=== PATIENT | female | born 1995 | race American Indian/Alaskan Native ===

== ENCOUNTER 2017-07-20 06:42 | Outpatient (CLI) | payer MEDICARE ==
[2017-07-20] MEDS ORDERED: LACTATED RINGERS 1,000 ML IV ONE (06:43)
[2017-07-20 07:03] VITALS: BP 104/63
[2017-07-20 07:10] LABS: Bilirubin,Urine NEG (Negative); Blood,Urine MOD (Negative); Color,Urine Yellow (Yellow); Mucus,Urine FEW /HPF; Protein,Urine <15 mg/dL mg/dL (Negative); Urobilinogen,Urine < 2.0 mg/dL (<2.0)
[2017-07-20 07:42] LABS: Basophils % (Auto) 0.4 % (0.0-1.8); Eosinophils # (Auto) 0.1 K/mm3 (0.0-0.4); Eosinophils % (Auto) 1.3 % (0.0-4.3); Hematocrit 28.7 % (30.3-42.9); Hemoglobin 9.5 gm/dl (10.1-14.3); Lymphocytes # (Auto) 1.7 K/mm3 (1.2-5.4); Lymphocytes % (Auto) 23.5 % (13.4-35.0); Mean Corpuscular HGB Conc 33 % (30-34); Mean Corpuscular Hemoglobin 28 pg (28-32); Mean Corpuscular Volume 84 fl (79-97); Monocytes # (Auto) 0.4 K/mm3 (0.0-0.8); Monocytes % (Auto) 5.1 % (0.0-7.3); Platelet Count 193 K/mm3 (140-440); Red Blood Count 3.43 M/mm3 (3.65-5.03); Red Cell Distribution Width 14.3 % (13.2-15.2)
--- NOTE | 2017-07-20 08:36 | Ultrasound Report ---
BIOPHYSICAL PROFILE: INDICATION: well being. COMPARISON: None similar. TECHNIQUE: Transabdominal ultrasound with Doppler interrogation. 2 - breathing movements 2 - movements 2 - posture and tone 2 - Qualitative amniotic fluid volume 8 - TOTAL SCORE OF POSSIBLE 8 Heart Rate (bpm) 130 CONCLUSION: Findings, as above.
--- NOTE | 2017-07-20 08:37 | Ultrasound Report ---
OB LIMITED INDICATION: Placenta scan. COMPARISON: None similar at this institution. TECHNIQUE: Transabdominal grayscale ultrasound with Doppler interrogation. Gestation: [place] Position: Cephalic Amniotic Fluid: WNL (7-24 cm) JEET = 7.9 cm Placenta: Posterior; no evidence of abruption. Placental Grade: I Heart Rate: 130 BPM CONCLUSION: Findings, as above.
[2017-07-20] MEDS ORDERED: VISTARIL PO PRN (09:30)
== END 2017-07-20 09:00 | disposition home or self-care (01) ==
LOC: TRG 06:42
PROVIDERS: ATTEND Obstetrics & Gynecology
DX: O46.93 Antepartum hemorrhage, unspecified, third trimester (principal); O26.893 Other specified pregnancy related conditions, third trimester; R52 Pain, unspecified; Z3A.32 32 weeks gestation of pregnancy
CPT/HCPCS: 36415; 59025; 76815; 76819; 81001; 85025; 96360; J7120; Q0177

== ENCOUNTER → 2017-07-21 | Outpatient (CLI) | payer MEDICARE ==
[~2017-07-21] MED LIST: ALUM-MAG HYDROX-SIMETH 200-200-20MG/5ML PO PRN; AMBIEN PO PRN; BENADRYL PO PRN; COLACE PO PRN; GUAIFENESIN DM SYRUP PO PRN; MILK OF MAGNESIA PO PRN; MYLICON PO PRN; NACL 0.9% 500 ML 500 ML IV ONE; PRENATAL VITAMIN PO SCH; PROCARDIA*For Tocolysis only ONE; PROCARDIA*For Tocolysis only PO ONE; SENOKOT S PO PRN; SUBLIMAZE IV ONE
[2017-07-21 22:16] LABS: Hematocrit 26.7 % (30.3-42.9); Mean Corpuscular HGB Conc 34 % (30-34); Mean Corpuscular Hemoglobin 28 pg (28-32); Mean Corpuscular Volume 84 fl (79-97); Platelet Count 182 K/mm3 (140-440); Red Cell Distribution Width 13.8 % (13.2-15.2)
[2017-07-22] MEDS: ZOFRAN IV PRN (00:29)
--- NOTE | 2017-07-22 00:29 | Ultrasound Report ---
FINAL REPORT EXAM: US OB FOLLOW UP HISTORY: vaginal bleeding TECHNIQUE: Transabdominal imaging was obtained the pelvis including Doppler interrogation of the fetus. FINDINGS: There is a single viable intrauterine in breech position having an estimated gestational age of 32 weeks 0 days. The heart rate is 131 BPM. The placenta is posterior and fundal in position and is grade 1. The JEET is 7.1 cm which is at the lower range of normal. A complete survey of organs was not obtained. The estimated weight is 1931 grams. IMPRESSION: Single viable breech intra , 32 weeks 0 days. heart is 131 BPM. No evidence of placental abruption.
[2017-07-22 00:54] LABS: Amphetamine Screen,Urine PRESUMPTIVE NEGATIVE; Benzodiazepines Screen,Urine PRESUMPTIVE NEGATIVE; Cannabinoid Screen,Urine PRESUMPTIVE NEGATIVE; Cocaine Screen,Urine PRESUMPTIVE NEGATIVE; Methadone Screen,Urine PRESUMPTIVE NEGATIVE; Opiate Screen,Urine PRESUMPTIVE NEGATIVE
[2017-07-22 00:59] LABS: Bilirubin,Urine NEG (Negative); Blood,Urine LG (Negative); Color,Urine Red (Yellow); Mucus,Urine FEW /HPF
[2017-07-22 01:05] LABS: RBC,Urine > 182.0 /HPF (0.0-6.0)
--- NOTE | 2017-07-22 01:09 | Ultrasound Report ---
FINAL REPORT PROCEDURE: US OB BPP EA ADD EXAM TECHNIQUE: Real-time limited sonographic examination was performed for evaluation of size, position, heartbeat, fluid volume for each fetus with image documentation (1 or more fetuses). CPT 17912 HISTORY: vaginal bleeding COMPARISON: No prior studies are available for comparison. FINDINGS: biophysical profile: breathing movements: 2. movements: 2. posterior and tone: 2. Qualitative amniotic fluid volume: 2. Total score: 8/8. IMPRESSION: biophysical profile total score: 8/8.
--- NOTE | 2017-07-22 08:22 | History and Physical Report ---
History of Present Illness Date of examination: 07/22/17 Date of admission: 07/21/17 Chief complaint: vaginal bleeding History of present illness: This is a 22 yo at 32+5 weeks here for vaginal bleeding that started at 8pm. She states that she was laying down doing nothing and has not had sex for last 3 weeks. She stated that it was pouring out. She came in to be evaluated. She is a patient of Dr. Delphine Reyes. No records available for review. She also c/o of contractions. Past History Past Medical History: no pertinent history Past Surgical History: no surgical history Family/Genetic History: none Social history: no significant social history, single. denies: smoking, alcohol abuse, prescription drug abuse - Obstetrical History Expected Date of Delivery: 09/11/17 Actual Gestation: 32 Week(s) 5 Day(s) : 4 Para: 3 Hx # Term Pregnancies: 3 Number of Pregnancies: 0 Spontaneous Abortions: 0 Induced : 0 Number of Living Children: 3 Medications and Allergies Allergies Allergy/AdvReac Type Severity Reaction Status Date / Time ibuprofen Allergy Itching Unverified 07/20/17 06:42 Home Medications Medication Instructions Recorded Confirmed Last Taken Type No Known Home Medications [No 07/22/17 07/22/17 Unknown History Reported Home Medications] Active Meds: Active Medications Acetaminophen (Tylenol) 650 mg PO Q4H PRN PRN Reason: Pain MILD(1-3)/Fever >100.5/ANDRADE Al Hydrox/Mg Hydrox/Simethicone (Alum-Mag Hydrox-Simeth [id number]/5ml) 30 ml PO Q6H PRN PRN Reason: Indigestion Diphenhydramine HCl (Benadryl) 25 mg PO Q6H PRN PRN Reason: Itching Docusate Sodium (Colace) 100 mg PO Q12H PRN PRN Reason: Constipation Guaifenesin (Guaifenesin Dm Syrup) 10 ml PO Q6H PRN PRN Reason: Cough Lactated Ringer's (Lactated Ringers) 1,000 mls @ 125 mls/hr IV DIRECT SERGIO Lactated Ringer's (Lactated Ringers) 1,000 mls @ 125 mls/hr IV DIRECT SERGIO Last Admin: 07/22/17 00:00 Dose: 125 mls/hr Magnesium Hydroxide (Milk Of Magnesia) 30 ml PO QHS PRN PRN Reason: Laxative Effect Multivitamins/Iron/Calcium ( Vitamin) 1 each PO QDAY SERGIO Ondansetron HCl (Zofran) 4 mg IV Q6H PRN PRN Reason: Nausea And Vomiting Last Admin: 07/22/17 00:29 Dose: 4 mg Senna/Docusate Sodium (Senokot S) 2 tab PO Q12H PRN PRN Reason: Laxative Effect Simethicone (Mylicon) 80 mg PO Q6H PRN PRN Reason: Gas pain Zolpidem Tartrate (Ambien) 10 mg PO ONCE PRN PRN Reason: Sleep Last Admin: 07/22/17 00:27 Dose: 10 mg Review of Systems All systems: negative Genitourinary: vaginal bleeding, contractions - Vital Signs Vital signs: Vital Signs Pulse Pulse Ox 95 H 100 07/21/17 21:49 07/21/17 21:49 Temp Pulse Resp BP Pulse Ox 97.9 F 85 18 104/59 100 07/22/17 07:32 07/22/17 08:13 07/22/17 07:32 07/22/17 07:30 07/22/17 08:13 - Physical Exam Breasts: Positive: deferred Cardiovascular: Regular rate, Normal S1 Lungs: Positive: Clear to auscultation, Normal air movement Abdomen: Positive: normal appearance, soft, normal bowel sounds. Negative: distention, tenderness, guarding Genitourinary (Female): Positive: normal external genitalia, normal perenium Vulva: both: normal Vagina: Positive: discharge (vaginal blood in vault ) Uterus: Positive: normal size, normal contour Anus/Rectum: Positive: normal perianal skin Extremities: Positive: normal Deep Tendon Reflex Grade: Normal +2 - Obstetrical FHR: category 1 Uterine Contraction Monitor Mode: External Cervical Dilatation: 1.5 Cervical Effacement Percentage: 40 station: -4 Uterine Contraction Pattern: Irregular Uterine Tone Measurement Phase: Contraction Uterine Contraction Intensity: Mild Results Result Diagrams: 07/21/17 22:05 Abnormal lab results 07/21/17 07/21/17 Range/Units 22:05 Unknown RBC 3.20 L (3.65-5.03) M/mm3 Hgb 9.0 L (10.1-14.3) gm/dl Hct 26.7 L (30.3-42.9) % Urine WBC (Auto) 44.0 H (0.0-6.0) /HPF All other labs normal. Ultrasound: report reviewed Assessment and Plan A/P IUP 32+5 weeks vaginal bleeding assess for abruption CBC, PT,PTT type and cross 2 units continuous monitoring- closely observed ( for any or maternal indications will proceed with delivery ) breech - if delivery will need awaiting APA recommendations BMZ x2 for lung maturity recommended
[2017-07-22 09:41] LABS: Basophils % (Auto) 0.2 % (0.0-1.8); Eosinophils # (Auto) 0.1 K/mm3 (0.0-0.4); Eosinophils % (Auto) 0.8 % (0.0-4.3); Hematocrit 24.7 % (30.3-42.9); Hemoglobin 8.2 gm/dl (10.1-14.3); Lymphocytes # (Auto) 1.1 K/mm3 (1.2-5.4); Lymphocytes % (Auto) 17.2 % (13.4-35.0); Mean Corpuscular HGB Conc 33 % (30-34); Mean Corpuscular Hemoglobin 28 pg (28-32); Mean Corpuscular Volume 83 fl (79-97); Monocytes # (Auto) 0.3 K/mm3 (0.0-0.8); Monocytes % (Auto) 4.6 % (0.0-7.3); Platelet Count 173 K/mm3 (140-440); Red Blood Count 2.97 M/mm3 (3.65-5.03); Red Cell Distribution Width 13.9 % (13.2-15.2)
[2017-07-22 09:49] LABS: INR 0.93 (0.87-1.13)
[2017-07-22 09:50] LABS: Partial Thromboplastin Time 26.7 Sec. (24.2-36.6)
[2017-07-22] MEDS: TYLENOL PO PRN (10:40)
[2017-07-22] MEDS: CELESTONE SOLUSPAN IM SCH (11:41)
[2017-07-22] MEDS: STADOL IV PRN ×4 (14:33→23:08)
[2017-07-22 16:29] LABS: Hematocrit 26.8 % (30.3-42.9); Mean Corpuscular HGB Conc 34 % (30-34); Mean Corpuscular Hemoglobin 28 pg (28-32); Mean Corpuscular Volume 83 fl (79-97); Platelet Count 177 K/mm3 (140-440); Red Blood Count 3.22 M/mm3 (3.65-5.03); Red Cell Distribution Width 14.4 % (13.2-15.2)
[2017-07-22 17:29] LABS: Band Neutrophils # (Manual) 0.2 K/mm3; Basophils % (Manual) 0 % (0.0-1.8); Eosinophils % (Manual) 0 % (0.0-4.3); Monocytes % (Manual) 0 % (0.0-7.3); Total Cells Counted 100
[2017-07-22 17:30] LABS: Hypochromasia 1+
[2017-07-22] MEDS: LACTATED RINGERS 1,000 ML IV SCH ×3 (17:36→23:09)
--- NOTE | 2017-07-22 17:57 | Event Note ---
Date: 07/22/17 I met with mother & father of baby with bedside nurse present and attempted to complete consult. Mother was in pain and had difficulty focussing on the information. I encouraged parents to write questions they had regarding NICU care. Plan F/U tomorrow to complete consult
[2017-07-23] MEDS: TYLENOL PO PRN (01:45)
[2017-07-23] MEDS: LACTATED RINGERS 1,000 ML IV SCH ×3 (06:38→20:35)
--- NOTE | 2017-07-23 07:30 | Progress Note ---
Assessment and Plan A/P IUP 32+6 weeks vaginal bleeding assess for abruption cbc remained stable at 9.0 repeat cbc today continued bed rest with bathroom privileges continuous monitoring- closely observed ( for any or maternal indications will proceed with delivery ) breech - if delivery will need BMZ x2 for lung maturity recommended last dose today at 11a Subjective - Subjective Date of service: 07/23/17 Principal diagnosis: vaginal bleeding in third trimester Interval history: This is a 22 yo at 32+5 weeks here for vaginal bleeding that started at 8pm. She states that she was laying down doing nothing and has not had sex for last 3 weeks. She stated that it was pouring out. She came in to be evaluated. She is a patient of Dr. Delphine Reyes. No records available for review. She also c/o of contractions. Patient reports: vaginal bleeding (decreasing ), movement normal, no new complaints, no loss of fluid, no contractions Objective - Vital Signs Vital Signs: Vital Signs - 12hr 07/22/17 07/22/17 07/22/17 19:53 19:54 23:15 Temperature 99 F Pulse Rate 80 80 68 Respiratory 18 Rate Blood Pressure 104/63 106/58 Blood Pressure 104/63 [Left] - Exam Breasts: deferred Cardiovascular: Regular rate, Normal S1 Lungs: Clear to auscultation, Normal air movement Abdomen: Present: normal appearance, soft, normal bowel sounds. Absent: distention, tenderness, guarding Uterus: Present: normal FHR: category 1 - Labs Labs: Abnormal Labs 07/21/17 07/21/17 07/22/17 22:05 Unknown 09:15 RBC 3.20 L 2.97 L Hgb 9.0 L 8.2 L Hct 26.7 L 24.7 L Lymph # 1.1 L Seg Neutrophils % 77.2 H Seg Neuts % (Manual) Lymphocytes % (Manual) Seg Neutrophils # Man Lymphocytes # (Manual) Urine WBC (Auto) 44.0 H Crossmatch 07/22/17 07/22/17 09:16 16:03 RBC 3.22 L Hgb 9.0 L Hct 26.8 L Lymph # Seg Neutrophils % Seg Neuts % (Manual) 93.0 H Lymphocytes % (Manual) 5.0 L Seg Neutrophils # Man 8.8 H Lymphocytes # (Manual) 0.5 L Urine WBC (Auto) Crossmatch See Detail Laboratory Results - last 24 hr 07/22/17 07/22/17 07/22/17 09:15 09:16 09:16 WBC 6.7 RBC 2.97 L Hgb 8.2 L Hct 24.7 L MCV 83 MCH 28 MCHC 33 RDW 13.9 Plt Count 173 Lymph % (Auto) 17.2 [place] % (Auto) 4.6 Eos % (Auto) 0.8 Baso % (Auto) 0.2 Lymph # 1.1 L [place] # 0.3 Eos # 0.1 Baso # 0.0 Add Manual Diff Total Counted Seg Neutrophils % 77.2 H Seg Neuts % (Manual) Band Neutrophils % Lymphocytes % (Manual) Reactive Lymphs % (Man) Monocytes % (Manual) Eosinophils % (Manual) Basophils % (Manual) Metamyelocytes % Myelocytes % Promyelocytes % Blast Cells % Nucleated RBC % Seg Neutrophils # 5.2 Seg Neutrophils # Man Band Neutrophils # Lymphocytes # (Manual) Abs React Lymphs (Man) Monocytes # (Manual) Eosinophils # (Manual) Basophils # (Manual) Metamyelocytes # Myelocytes # Promyelocytes # Blast Cells # WBC Morphology Hypersegmented Neuts Hyposegmented Neuts Hypogranular Neuts Smudge Cells Toxic Granulation Toxic Vacuolation Dohle Bodies Pelger-Huet Anomaly Bita Rods Platelet Estimate Clumped Platelets Plt Clumps, EDTA Large Platelets Giant Platelets Platelet Satelliting Plt Morphology Comment RBC Morphology Dimorphic RBCs Polychromasia Hypochromasia Poikilocytosis Anisocytosis Microcytosis Macrocytosis Spherocytes Pappenheimer Bodies Sickle Cells Target Cells Tear Drop Cells Ovalocytes Helmet Cells Dinh-[place] Bodies Art Rings Rossiter Cells Bite Cells Crenated Cell Elliptocytes Acanthocytes (Spur) Rouleaux Hemoglobin C Crystals Schistocytes Malaria parasites Jn Bodies Hem Pathologist Commnt PT 12.9 INR 0.93 APTT 26.7 Blood Type O POSITIVE Antibody Screen Negative Crossmatch See Detail 07/22/17 16:03 WBC 9.5 RBC 3.22 L Hgb 9.0 L Hct 26.8 L MCV 83 MCH 28 MCHC 34 RDW 14.4 Plt Count 177 Lymph % (Auto) [place] % (Auto) Eos % (Auto) Baso % (Auto) Lymph # [place] # Eos # Baso # Add Manual Diff Complete Total Counted 100 Seg Neutrophils % Regional Education Coordinator Seg Neuts % (Manual) 93.0 H Band Neutrophils % 2.0 Lymphocytes % (Manual) 5.0 L Reactive Lymphs % (Man) 0 Monocytes % (Manual) 0 Eosinophils % (Manual) 0 Basophils % (Manual) 0 Metamyelocytes % 0 Myelocytes % 0 Promyelocytes % 0 Blast Cells % 0 Nucleated RBC % Not Reportable Seg Neutrophils # Seg Neutrophils # Man 8.8 H Band Neutrophils # 0.2 Lymphocytes # (Manual) 0.5 L Abs React Lymphs (Man) 0.0 Monocytes # (Manual) 0.0 Eosinophils # (Manual) 0.0 Basophils # (Manual) 0.0 Metamyelocytes # 0.0 Myelocytes # 0.0 Promyelocytes # 0.0 Blast Cells # 0.0 WBC Morphology Not Reportable Hypersegmented Neuts Not Reportable Hyposegmented Neuts Not Reportable Hypogranular Neuts Not Reportable Smudge Cells Not Reportable Toxic Granulation Not Reportable Toxic Vacuolation Not Reportable Dohle Bodies Not Reportable Pelger-Huet Anomaly Not Reportable Bita Rods Not Reportable Platelet Estimate Appears normal Clumped Platelets Not Reportable Plt Clumps, EDTA Not Reportable Large Platelets Not Reportable Giant Platelets Not Reportable Platelet Satelliting Not Reportable Plt Morphology Comment Not Reportable RBC Morphology Not Reportable Dimorphic RBCs Not Reportable Polychromasia Not Reportable Hypochromasia 1+ Poikilocytosis Not Reportable Anisocytosis Not Reportable Microcytosis Not Reportable Macrocytosis Not Reportable Spherocytes Not Reportable Pappenheimer Bodies Not Reportable Sickle Cells Not Reportable Target Cells Not Reportable Tear Drop Cells Not Reportable Ovalocytes Not Reportable Helmet Cells Not Reportable Dinh-[place] Bodies Not Reportable Art Rings Not Reportable Rossiter Cells Not Reportable Bite Cells Not Reportable Crenated Cell Not Reportable Elliptocytes Few Acanthocytes (Spur) Not Reportable Rouleaux Not Reportable Hemoglobin C Crystals Not Reportable Schistocytes Not Reportable Malaria parasites Not Reportable Jn Bodies Not Reportable Hem Pathologist Commnt No PT INR APTT Blood Type Antibody Screen Crossmatch
[2017-07-23] MEDS: ZOFRAN IV PRN (08:36)
[2017-07-23] MEDS: STADOL IV PRN ×3 (08:36→20:35)
[2017-07-23 11:04] LABS: Basophils % (Auto) 0.1 % (0.0-1.8); Eosinophils % (Auto) 0.1 % (0.0-4.3); Hematocrit 26.6 % (30.3-42.9); Hemoglobin 8.9 gm/dl (10.1-14.3); Lymphocytes # (Auto) 0.8 K/mm3 (1.2-5.4); Lymphocytes % (Auto) 10.6 % (13.4-35.0); Mean Corpuscular HGB Conc 33 % (30-34); Mean Corpuscular Hemoglobin 28 pg (28-32); Mean Corpuscular Volume 85 fl (79-97); Monocytes # (Auto) 0.3 K/mm3 (0.0-0.8); Platelet Count 179 K/mm3 (140-440); Red Blood Count 3.15 M/mm3 (3.65-5.03); Red Cell Distribution Width 14.2 % (13.2-15.2)
[2017-07-23] MEDS: CELESTONE SOLUSPAN IM SCH (11:49)
--- NOTE | 2017-07-23 16:57 | Consultation ---
History of Present Illness Consult date: 07/23/17 Reason for consult: prematurity (32 weeks gestation with vaginal bleeding) [place] Documentation - information: Height 5 ft 5 in Medications and Allergies Allergies Allergy/AdvReac Type Severity Reaction Status Date / Time ibuprofen Allergy Itching Unverified 07/20/17 06:42 Home Medications Medication Instructions Recorded Confirmed Last Taken Type No Known Home Medications [No 07/22/17 07/22/17 Unknown History Reported Home Medications] Active Meds: Active Medications Acetaminophen (Tylenol) 650 mg PO Q4H PRN PRN Reason: Pain MILD(1-3)/Fever >100.5/ANDRADE Last Admin: 07/23/17 01:45 Dose: 650 mg Al Hydrox/Mg Hydrox/Simethicone (Alum-Mag Hydrox-Simeth [id number]/5ml) 30 ml PO Q6H PRN PRN Reason: Indigestion Butorphanol Tartrate (Stadol) 1 mg IV Q2H PRN PRN Reason: Labor Pain Last Admin: 07/23/17 14:25 Dose: 1 mg Diphenhydramine HCl (Benadryl) 25 mg PO Q6H PRN PRN Reason: Itching Docusate Sodium (Colace) 100 mg PO Q12H PRN PRN Reason: Constipation Guaifenesin (Guaifenesin Dm Syrup) 10 ml PO Q6H PRN PRN Reason: Cough Lactated Ringer's (Lactated Ringers) 1,000 mls @ 125 mls/hr IV DIRECT SERGIO Last Admin: 07/23/17 16:33 Dose: 125 mls/hr Lactated Ringer's (Lactated Ringers) 1,000 mls @ 125 mls/hr IV DIRECT SERGIO Last Admin: 07/22/17 17:36 Dose: 500 mls/hr Magnesium Hydroxide (Milk Of Magnesia) 30 ml PO QHS PRN PRN Reason: Laxative Effect Multivitamins/Iron/Calcium ( Vitamin) 1 each PO QDAY SERGIO Last Admin: 07/22/17 10:37 Dose: Not Given Ondansetron HCl (Zofran) 4 mg IV Q6H PRN PRN Reason: Nausea And Vomiting Last Admin: 07/23/17 08:36 Dose: 4 mg Senna/Docusate Sodium (Senokot S) 2 tab PO Q12H PRN PRN Reason: Laxative Effect Simethicone (Mylicon) 80 mg PO Q6H PRN PRN Reason: Gas pain Zolpidem Tartrate (Ambien) 10 mg PO ONCE PRN PRN Reason: Sleep Last Admin: 07/22/17 00:27 Dose: 10 mg Exam Vital Signs Pulse Pulse Ox 95 H 100 07/21/17 21:49 07/21/17 21:49 Temp Pulse Resp BP Pulse Ox 98.7 F 75 18 111/58 97 07/23/17 14:10 07/23/17 13:25 07/23/17 14:10 07/23/17 13:25 07/23/17 10:38 Results - Laboratory Findings 07/23/17 10:46 Abnormal lab results 07/22/17 07/23/17 Range/Units 16:03 10:46 RBC 3.15 L (3.65-5.03) M/mm3 Hgb 8.9 L (10.1-14.3) gm/dl Hct 26.6 L (30.3-42.9) % Lymph % (Auto) 10.6 L (13.4-35.0) % Lymph # 0.8 L (1.2-5.4) K/mm3 Seg Neutrophils % 85.2 H (40.0-70.0) % Seg Neuts % (Manual) 93.0 H (40.0-70.0) % Lymphocytes % (Manual) 5.0 L (13.4-35.0) % Seg Neutrophils # Man 8.8 H (1.8-7.7) K/mm3 Lymphocytes # (Manual) 0.5 L (1.2-5.4) K/mm3 Assessment and Plan I met with mother and father and explained the need for NICU admission for intensive monitoring after delivery. We discussed the possibility of respiratory support, IV fluids and slow advancement of feeding, the use of NG/ OG feeding tubes as well as problems with temperature regulation. Mother demonstrated understanding of information provided and asked appropriate questions. Plan: Agree with steroids will attend delivery Call NICU with questions
[2017-07-24 00:27] VITALS: BP 109/59
== END ==
LOC: TRG 21:25 → LD 21:25
PROVIDERS: ATTEND Obstetrics & Gynecology
DX: O46.93 Antepartum hemorrhage, unspecified, third trimester (principal); O32.1XX0 Maternal care for breech presentation, not applicable or unspecified; Z79.899 Other long term (current) drug therapy; Z3A.32 32 weeks gestation of pregnancy
CPT/HCPCS: 36415; 76816; 76819; 80307; 81001; 85027; 85730; J7120; J0595; J0702; J2405; J3010